=== PATIENT | male | born 1965 | race Caucasian/White ===

== ENCOUNTER 2018-01-04 13:37 | Emergency (ER) | payer OTHER ==
[~2018-01-04] VITALS: Ht 180.3 cm; Wt 101.2 kg
[2018-01-04] MEDS ORDERED: IOHEXOL 240 MG/ML 50ML VIAL. ONE (14:02)
[2018-01-04 14:23] LABS: BASO % 1 % (0-3); EOS # 0.2 x10^3/uL (0.0-0.7); EOS % 3 % (0-3); HEMATOCRIT 45.3 % (39.0-53.0); HEMOGLOBIN 16.1 g/dL (13.0-17.5); LYMPH # 2.2 x10^3/uL (1.0-4.8); LYMPH % 27 % (24-48); MEAN CORPUSCULAR HEMOGLOBIN 30 pg (25-35); MEAN CORPUSCULAR HGB CONC 35 g/dL (31-37); MEAN CORPUSCULAR VOLUME 85 fL (79-100); MONO # 1.1 x10^3/uL (0.0-1.1); MONO % 14 % (0-9); NEUT # 4.5 x10^3uL (1.8-7.7); NEUT % 56 % (31-73); PLATELET COUNT 205 x10^3/uL (140-400); RED BLOOD COUNT 5.36 x10^6/uL (4.30-5.70); RED CELL DISTRIBUTION WIDTH 13.2 % (11.5-14.5); WHITE BLOOD COUNT 8.1 x10^3/uL (4.0-11.0)
[2018-01-04 14:36] LABS: BACTERIA,URINE 0 /HPF (0-FEW); BILIRUBIN,URINE NEG (NEG); CLARITY,URINE CLEAR; COLOR,URINE YELLOW; GLUCOSE,URINE NEG (NEG); NITRITE,URINE NEG (NEG); RBC,URINE 0 /HPF (0-2); SQUAMOUS EPITHELIAL CELL,UR FEW /LPF; UROBILINOGEN,URINE 0.2 mg/dL (0.2 mg/dL); WBC,URINE 0 /HPF (0-4)
[2018-01-04 14:38] LABS: ALBUMIN 3.9 g/dL (3.4-5.0); ALBUMIN/GLOBULIN RATIO 1.2 (1.0-1.7); CALCIUM 8.9 mg/dL (8.5-10.1); CREATININE 1.2 mg/dL (0.7-1.3); GFR 63.8; POTASSIUM 3.8 mmol/L (3.5-5.1); TOTAL BILIRUBIN 0.5 mg/dL (0.2-1.0); TOTAL PROTEIN 7.2 g/dL (6.4-8.2)
[2018-01-04] MEDS ORDERED: CONTRAST GIVEN MC PRN (14:45)
[2018-01-04] MEDS ORDERED: IV NORMAL SALINE 1,000ML 1,000 ML IV SCH (15:00)
[2018-01-04] MEDS ORDERED: IOHEXOL 300 MG/ML 75 ML VIAL. IV ONE (15:00)
[2018-01-04] MEDS ORDERED: KETOROLAC 30 MG/ML VIAL. IV ONE (15:00)
--- NOTE | 2018-01-04 15:22 | PHYS DOC ---
Past History Past Medical History: No Pertinent History Past Surgical History: No Surgical History Alcohol Use: None Drug Use: None Adult General Chief Complaint Chief Complaint: ABDOMINAL PAIN HPI HPI 52-year-old female patient complaining of lower quadrant pain since yesterday as a constant pain for the last 24 hours. Patient said the pain is aching pain and getting worse with standing and movement. Patient rated his pain 5/10 and denies nausea, vomiting, diarrhea and constipation, fever and chills, urinary symptoms, anorexia. Patient states that the same pain in September that last for couple days and resolved spontaneously without seeking medical attention. Review of Systems Review of Systems Constitutional: Denies fever or chills [] Eyes: Denies change in visual acuity, redness, or eye pain [] HENT: Denies nasal congestion or sore throat [] Respiratory: Denies cough or shortness of breath [] Cardiovascular: No additional information not addressed in HPI [] GI: Reports abdominal pain, denies nausea, vomiting, bloody stools or diarrhea [ ] : Denies dysuria or hematuria [] Musculoskeletal: Denies back pain or joint pain [] Integument: Denies rash or skin lesions [] Neurologic: Denies headache, focal weakness or sensory changes [] Endocrine: Denies polyuria or polydipsia [] All other systems were reviewed and found to be within normal limits, except as documented in this note. Current Medications Current Medications Current Medications Medications (Trade) Dose Ordered Sig/Rajeev Start Time Stop Time Status Last Admin Dose Admin Info (Do NOT chart on this entry -- for MONITORING) 1 each PRN DAILY PRN 01/04/18 14:45 01/06/18 14:44 Iohexol (Omnipaque 240 Mg/ml) 50 ml STK-MED ONCE 01/04/18 14:02 01/04/18 14:03 DC Iohexol (Omnipaque 300 Mg/ml) 75 ml 1X ONCE 01/04/18 15:00 01/04/18 15:01 DC Ketorolac Tromethamine (Toradol) 30 mg 1X ONCE 01/04/18 15:00 01/04/18 15:01 DC 01/04/18 14:51 30 MG Sodium Chloride 1,000 ml @ 1,000 mls/hr Q1H 01/04/18 15:00 01/04/18 15:59 01/04/18 14:51 1,000 MLS/HR Allergies Allergies Allergies Coded Allergies Type Severity Reaction Last Updated Verified No Known Drug Allergies 01/04/18 No Physical Exam Physical Exam Constitutional: Well developed, well nourished, mild distress, non-toxic appearance. [] HENT: Normocephalic, atraumatic, bilateral external ears normal, oropharynx moist, no oral exudates, nose normal. [] Eyes: PERRLA, EOMI, conjunctiva normal, no discharge. [] Neck: Normal range of motion, no tenderness, supple, no stridor. [] Cardiovascular:Heart rate regular rhythm, no murmur [] Lungs & Thorax: Bilateral breath sounds clear to auscultation [] Abdomen: Bowel sounds normal, soft, no tenderness, no masses, no pulsatile masses, right lower quadrant guarding , no hernia. [] Skin: Warm, dry, no erythema, no rash. [] Back: No tenderness, no CVA tenderness. [] Extremities: No tenderness, no cyanosis, no clubbing, ROM intact, no edema. [] Neurologic: Alert and oriented X 3, normal motor function, normal sensory function, no focal deficits noted. [] Psychologic: Affect normal, judgement normal, mood normal. [] Current Patient Data Vital Signs Vital Signs Date Time Temp Pulse Resp B/P (MAP) Pulse Ox O2 Delivery O2 Flow Rate FiO2 01/04/18 13:37 98.3 91 18 98 Room Air Lab Results Laboratory Tests Test 01/04/18 14:10 White Blood Count 8.1 x10^3/uL (4.0-11.0) Red Blood Count 5.36 x10^6/uL (4.30-5.70) Hemoglobin 16.1 g/dL (13.0-17.5) Hematocrit 45.3 % (39.0-53.0) Mean Corpuscular Volume 85 fL (79-100) Mean Corpuscular Hemoglobin 30 pg (25-35) Mean Corpuscular Hemoglobin Concent 35 g/dL (31-37) Red Cell Distribution Width 13.2 % (11.5-14.5) Platelet Count 205 x10^3/uL (140-400) Neutrophils (%) (Auto) 56 % (31-73) Lymphocytes (%) (Auto) 27 % (24-48) Monocytes (%) (Auto) 14 % (0-9) H Eosinophils (%) (Auto) 3 % (0-3) Basophils (%) (Auto) 1 % (0-3) Neutrophils # (Auto) 4.5 x10^3uL (1.8-7.7) Lymphocytes # (Auto) 2.2 x10^3/uL (1.0-4.8) Monocytes # (Auto) 1.1 x10^3/uL (0.0-1.1) Eosinophils # (Auto) 0.2 x10^3/uL (0.0-0.7) Basophils # (Auto) 0.0 x10^3/uL (0.0-0.2) Urine Collection Type Unknown Urine Color Yellow Urine Clarity Clear Urine pH 6.5 Urine Specific [place] 1.025 Urine Protein Neg (NEG-TRACE) Urine Glucose (UA) Neg mg/dL (NEG) Urine Ketones (Stick) Neg mg/dL (NEG) Urine Blood Trace (NEG) Urine Nitrite Neg (NEG) Urine Bilirubin Neg (NEG) Urine Urobilinogen Dipstick 0.2 mg/dL (0.2 mg/dL) Urine Leukocyte Esterase Neg (NEG) Urine RBC 0 /HPF (0-2) Urine WBC 0 /HPF (0-4) Urine Squamous Epithelial Cells Few /LPF Urine Bacteria 0 /HPF (0-FEW) Urine Mucus Slight /LPF Sodium Level 141 mmol/L (136-145) Potassium Level 3.8 mmol/L (3.5-5.1) Chloride Level 103 mmol/L (98-107) Carbon Dioxide Level 29 mmol/L (21-32) Anion Gap 9 (6-14) Blood Urea Nitrogen 11 mg/dL (8-26) Creatinine 1.2 mg/dL (0.7-1.3) Estimated GFR (Cockcroft-Gault) 63.8 BUN/Creatinine Ratio 9 (6-20) Glucose Level 90 mg/dL (70-99) Calcium Level 8.9 mg/dL (8.5-10.1) Total Bilirubin 0.5 mg/dL (0.2-1.0) Aspartate Amino Transferase (AST) 27 U/L (15-37) Alanine Aminotransferase (ALT) 64 U/L (16-63) H Alkaline Phosphatase 96 U/L (46-116) Total Protein 7.2 g/dL (6.4-8.2) Albumin 3.9 g/dL (3.4-5.0) Albumin/Globulin Ratio 1.2 (1.0-1.7) Lipase 160 U/L (73-393) EKG EKG [] Radiology/Procedures Radiology/Procedures [] [address] [place] [id number] IMAGING REPORT Signed PATIENT: NICO YORK ACCOUNT: [id number] : 1965 LOCATION: ER AGE: 52 SEX: M EXAM STATUS: REG ER ORD. PHYSICIAN: MALICK ANDREWS MD REASON: right lower quadrant pain PROCEDURE: CT ABD PELV W/ORAL&IV CONTRAST CT study of the abdomen and pelvis with contrast Clinical indication: Right lower quadrant abdominal pain and right groin pain for 24 hours. Technique: After IV infusion of 75 cc of Omnipaque 300, helical CT scanning of the abdomen and pelvis was performed. GI contrast was administered per mouth. PQRS Compliance Statement: One or more of the following individualized dose reduction techniques were utilized for this examination: 1. Automated exposure control 2. Adjustment of the mA and/or kV according to patient size 3. Use of iterative reconstruction technique Comparison: None available. Findings: There is geographic fatty infiltration of the liver. The spleen and pancreas and gallbladder are normal. No extra hepatic biliary ductal dilatation is seen. No adrenal mass is evident. Both kidneys are normal without hydronephrosis or hydroureter. Urinary bladder wall is smooth. No focal aneurysmal dilatation of the abdominal aorta is seen. No enlarged abdominal or pelvic lymphadenopathy is evident. The terminal ileum is unremarkable. The appendix is normal. No obstructive bowel pattern is evident. No free air or free fluid or mesenteric edema is seen. No anterior abdominal wall hernia or inguinal hernia is seen. No lung base consolidation is evident. No osteolytic process is seen. IMPRESSION: No acute abnormality of the abdomen or pelvis is seen. The appendix is normal. DICTATED AND SIGNED BY: VIRGILIO WARREN MD DATE: 01/04/18 1538 CC: MALICK ANDREWS MD; PCP,NO ~ Course & Med Decision Making Course & Med Decision Making Pertinent Labs and Imaging studies reviewed. (See chart for details) Evaluation of patient in ER showed 52-year-old male patient with complaining of right lower quadrant pain since yesterday that getting worse with movement. Patient had unremarkable labs and CT abdomen and pelvis and physical exam and felt better with Toradol and IV fluid. Plan discharge patient home with diagnosis of musculoskeletal abdominal wall pain. I've spoken with the patient and/or caregivers. I've explained the patient's condition, diagnosis and treatment plan based on information available to me at this time. I've answered the patient's and/or caregivers questions and addressed any concerns. The patient and/or caregivers have a good understanding the patient's diagnosis, condition and treatment plan as can be expected at this point. Vital signs have been stabilized. The patient's condition is stable for discharge from the emergency department. The patient will pursue further outpatient evaluation with her primary care provider or other designated consulting physician as outlined in the discharge instructions. Patient and/or caregivers are agreeable to this plan of care and follow-up instructions have been explained in detail. The patient and/or caregivers have received these instructions in written format and expressed understanding of these discharge instructions. The patient and her caregivers are aware that if any significant change in condition or worsening of symptoms should prompt him to immediately return to this of the closest emergency department. If an emergent department is not readily available I would encourage him to call 911. [] Dragon Disclaimer Dragon Disclaimer This electronic medical record was generated, in whole or in part, using a voice recognition dictation system. Departure Departure: Impression: Primary Impression: Muscular abdominal pain in right lower quadrant Disposition: HOME, SELF-CARE (At 1604) Condition: IMPROVED Referrals: PCP,CHERIE (PCP) Patient Instructions: Muscle Strain Additional Instructions: Drink plenty of liquids Follow-up with your primary care physician in 3-5 days Return to ER if not getting better Scripts Naproxen (NAPROSYN) 500 Mg Tablet 1 TAB PO BID, #14 TAB 2 Refills Prov: MALICK ANDREWS MD 01/04/18 MALICK ANDREWS MD Jan 04, 2018 15:21
--- NOTE | 2018-01-04 15:38 | RAD ---
CT study of the abdomen and pelvis with contrast Clinical indication: Right lower quadrant abdominal pain and right groin pain for 24 hours. Technique: After IV infusion of 75 cc of Omnipaque 300, helical CT scanning of the abdomen and pelvis was performed. GI contrast was administered per mouth. PQRS Compliance Statement: One or more of the following individualized dose reduction techniques were utilized for this examination: 1. Automated exposure control 2. Adjustment of the mA and/or kV according to patient size 3. Use of iterative reconstruction technique Comparison: None available. Findings: There is geographic fatty infiltration of the liver. The spleen and pancreas and gallbladder are normal. No extra hepatic biliary ductal dilatation is seen. No adrenal mass is evident. Both kidneys are normal without hydronephrosis or hydroureter. Urinary bladder wall is smooth. No focal aneurysmal dilatation of the abdominal aorta is seen. No enlarged abdominal or pelvic lymphadenopathy is evident. The terminal ileum is unremarkable. The appendix is normal. No obstructive bowel pattern is evident. No free air or free fluid or mesenteric edema is seen. No anterior abdominal wall hernia or inguinal hernia is seen. No lung base consolidation is evident. No osteolytic process is seen. IMPRESSION: No acute abnormality of the abdomen or pelvis is seen. The appendix is normal.
[2018-01-04] MEDS ORDERED: NAPR-683 PO (16:05)
[2018-01-04 16:09] VITALS: BP 147/89
== END 2018-01-04 16:09 | disposition home or self-care (01) ==
LOC: ER 13:37
DX: R10.31 Right lower quadrant pain (principal)
CPT/HCPCS: 36415; 74177; 80053; 81001; 83690; 85025; 96361; 96374; 99285; J1885; J7030

== ENCOUNTER 2018-12-30 10:34 | Emergency (ER) | payer OTHER ==
[~2018-12-30] VITALS: Ht 180.3 cm; Wt 99.8 kg
[~2018-12-30 10:34] MED LIST: NAPR-683 PO
[2018-12-30 10:40] VITALS: BP 138/75
[2018-12-30] MEDS ORDERED: AMOX1TAB61 PO (10:57)
[2018-12-30] MEDS ORDERED: HYDR115S2 PO (10:57)
[2018-12-30] MEDS ORDERED: ALBU2.5V8 INH (10:57)
[2018-12-30] MEDS ORDERED: FLUT12AE2 IH (10:57)
--- NOTE | 2018-12-30 10:57 | PHYS DOC ---
Past History Past Medical History: GERD Past Surgical History: No Surgical History Alcohol Use: None Drug Use: None Adult General Chief Complaint Chief Complaint: FLU SYMPTOM HPI HPI Patient is a 53 year old male who presents with nasal congestion and URI symptoms for 2 weeks. Patient states he had facial pain and nasal congestion and sore throat and earache . Patient states he has had cough was productive intermittently. Patient states he took [id number] medication without improvement of his condition. She denies fever and chills, vomiting , sick contact. Review of Systems Review of Systems Constitutional: Denies fever or chills [] Eyes: Denies change in visual acuity, redness, or eye pain [] HENT: Reports nasal congestion or sore throat Respiratory: Reports cough and shortness of breath Cardiovascular: No additional information not addressed in HPI [] GI: Denies abdominal pain, nausea, vomiting, bloody stools or diarrhea [] : Denies dysuria or hematuria [] Musculoskeletal: Denies back pain or joint pain [] Integument: Denies rash or skin lesions [] Neurologic: Denies headache, focal weakness or sensory changes [] Endocrine: Denies polyuria or polydipsia [] All other systems were reviewed and found to be within normal limits, except as documented in this note. Allergies Allergies Allergies Coded Allergies Type Severity Reaction Last Updated Verified No Known Drug Allergies 01/04/18 No Physical Exam Physical Exam Constitutional: Well developed, well nourished, mild acute distress, non-toxic appearance. [] HENT: Normocephalic, atraumatic, bilateral external ears normal, oropharynx moist, pharyngeal erythema, no oral exudates, nasal mucosal thickening with erythema and edema, maxillary and frontal sinus tenderness[] Eyes: PERRLA, EOMI, conjunctiva normal, no discharge. [] Neck: Normal range of motion, no tenderness, supple, no stridor. [] Cardiovascular:Heart rate regular rhythm, no murmur [] Lungs & Thorax: Bilateral breath sounds clear to auscultation [] Skin: Warm, dry, no erythema, no rash. [] Back: No tenderness, no CVA tenderness. [] Extremities: No tenderness, no cyanosis, no clubbing, ROM intact, no edema. [] Neurologic: Alert and oriented X 3, normal motor function, normal sensory function, no focal deficits noted. [] Psychologic: Affect normal, judgement normal, mood normal. [] Current Patient Data Vital Signs Vital Signs Date Time Temp Pulse Resp B/P (MAP) Pulse Ox O2 Delivery O2 Flow Rate FiO2 12/30/18 10:40 97.8 84 16 96 Room Air EKG EKG [] Radiology/Procedures Radiology/Procedures [] Course & Med Decision Making Course & Med Decision Making Evaluation of patient in ER showed 53-year-old male patient with history of sinusitis presented with URI symptom and facial pain for 2 weeks. Patient did not have fever. Plan discharge patient home with diagnosis of acute sinusitis and URI with prescription of antibiotic. Dragon Disclaimer Dragon Disclaimer This electronic medical record was generated, in whole or in part, using a voice recognition dictation system. Departure Departure: Impression: Primary Impression: Acute sinusitis with symptoms > 10 days Additional Impression: Upper respiratory infection Disposition: HOME, SELF-CARE (at 1054) Condition: STABLE Referrals: RA CHAPPELL DO, [facility] (PCP) Patient Instructions: Sinusitis, Upper Respiratory Infection, Adult Additional Instructions: Drink plenty of liquids Follow-up with your primary care physician in 3-5 days Return to ER if not getting better Scripts Fluticasone Propionate (FLOVENT 220MCG HFA) 12 Gm Aer.w.adap 2 PUFF IH BID for congestion, #1 INHALER Prov: MALICK ANDREWS MD 12/30/18 Hydrocodone/Chlorphen P-Stirex (Tussionex Pennkinetic Susp) 115 Ml Kathie.er.12h 5 ML PO BID for cough and congestion, #120 ML Prov: MALICK ANDREWS MD 12/30/18 Albuterol Sulfate (PROAIR HFA INHALER) 8.5 Gm Hfa.aer.ad 2 PUFF INH PRN Q6HRS PRN for SHORTNESS OF BREATH, #1 INHALER 0 Refills Prov: MALICK ANDREWS MD 12/30/18 Amoxicillin/Potassium Clav (AUGMENTIN 875-125 TABLET) 1 Each Tablet 1 TAB PO BID for infection, #20 TAB Prov: MALICK ANDREWS MD 12/30/18 Problem Qualifiers MALICK ANDREWS MD Dec 30, 2018 10:57
== END 2018-12-30 11:02 | disposition home or self-care (01) ==
LOC: ER 10:34
DX: J01.90 Acute sinusitis, unspecified (principal); K21.9 Gastro-esophageal reflux disease without esophagitis
CPT/HCPCS: 99283